=== PATIENT | male | born 1965 | race Caucasian/White ===

== ENCOUNTER 2018-10-14 06:26 | Emergency (ER) | payer SELFPAY ==
[2018-10-14 07:12] LABS: Hemoglobin 13.1 g/dL (14.0-18.0); Mean Corpuscular HGB CONC 31.6 g/dL (32.0-36.0); Mean Corpuscular Hemoglobin 29.6 pg (27.0-31.0); Mean Corpuscular Volume 93.8 fL (78.0-98.0); Mean Platelet Volume 8.3 fL (7.4-10.4); Platelet Count 168 thou/uL (130-400); RBC Distribution Width 11.4 % (11.5-14.5); Red Blood Cell (RBC) Count 4.42 mill/uL (4.70-6.10)
[2018-10-14 07:16] LABS: ALT (SGPT) 9 U/L (8-55); AST (SGOT) 14 U/L (5-34); Albumin 3.9 g/dL (3.5-5.0); Alkaline Phosphatase 71 U/L (40-150); Anion Gap 8 mmol/L (10-20); BUN (Urea Nitrogen) 15 mg/dL (8.4-25.7); Bilirubin, Total 1.1 mg/dL (0.2-1.2); CK (CPK) 73 U/L (30-200); Calc. Creatinine Clearance 0 mL/min (70-130); Calcium 9.2 mg/dL (7.8-10.44); Carbon Dioxide 28 mmol/L (22-29); Chloride 104 mmol/L (98-107); Estimated GFR-MDRD 57; Globulin 2.7 g/dL (2.4-3.5); Glucose 108 mg/dL (70-105); Potassium 4.3 mmol/L (3.5-5.1); Protein, Total 6.6 g/dL (6.0-8.3); Sodium 136 mmol/L (136-145)
[2018-10-14 07:30] LABS: Lymphocytes 18 % (21-51); MDiff Complete? YES; Monocytes 32 % (0-10); Neutrophil 48 % (42-75); Platelet Morphology Comment Appears Adequate; Reactive Lymphocytes 2 % (0-10); White Blood Cell (WBC) Count 2.2 thou/uL (4.8-10.8)
[2018-10-14 07:48] LABS: Acetaminophen Less than 6.0 mcg/mL (10.0-30.0); Alcohol Less than 10 mg/dL (Less than 10); Lipase 29 U/L (8-78); Salicylate Less than 8.0 mg/dL (15.0-30.0)
--- NOTE | 2018-10-14 08:03 | RAD ---
FRONTAL VIEW CHEST: INDICATION: Trauma, syncope with fall, injury and pain. FINDINGS: Extrinsic artifacts limit detail. There is no evidence of consolidation, effusion, or pneumothorax. The cardiac silhouette is within normal limits of size for portable technique. IMPRESSION: No focal consolidation. POS: ADRIANAK
--- NOTE | 2018-10-14 08:05 | CT ---
HEAD CT: INDICATION: Trauma, syncope with lightheadedness, fall with injury and pain. FINDINGS: There is focal CSF density at the posterior fossa which either relate to natasha cisterna magna or an ar achnoid cyst. Ventricular system is normal in size. No intracranial hemorrhage, mass effect, or mid line shift. Calvarium is intact. Mild mucosal thickening of the paranasal sinuses. IMPRESSION: No acute intracranial abnormalities. POS: [facility]
[2018-10-14 08:51] LABS: HIV (1/2) Antibody/Antigen Non-Reactive (NonReactive); HIV 1/2 INDEX 0.08 S/CO (<1.00)
[2018-10-14 10:13] LABS: Bilirubin Negative (Negative); Blood, Urine Negative (Negative); Glucose, Urine (Dipstick) Negative (Negative); Leukocyte Negative (Negative); Nitrite Negative (Negative); Protein, Urine (Dipstick) Negative (Neg-Trace); Specific Gravity, Urine 1.015 (1.005-1.030); Urobilinogen 0.2 mg/dL (0.2-1.0)
[2018-10-14 10:14] LABS: Clarity Clear (Clear)
[2018-10-14] MEDS ORDERED: Acetaminophen 500 MG TAB ONE (10:20)
[2018-10-14 10:24] LABS: Amphetamine Not Detected (NotDetected); Barbiturates Screen Not Detected (NotDetected); Benzodiazepine Screen Not Detected (NotDetected); Cocaine Metabolite Screen Not Detected (NotDetected); Medtox Reader # READER 1; Methadone Not Detected (NotDetected); Methamphetamine Not Detected (NotDetected); Opiate Screen Not Detected (NotDetected); Oxycodone Screen Not Detected (NotDetected); Phencyclidine (PCP) Not Detected (NotDetected); THC/Cannabinoid Screen Not Detected (NotDetected); Tricyclic Screen Not Detected (NotDetected)
[2018-10-14 10:25] LABS: Medtox Control Line Valid? VALID (VALID)
== END 2018-10-14 10:30 | disposition home or self-care (01) ==
LOC: ERS 06:26
DX: E86.0 Dehydration (principal); R55 Syncope and collapse; R79.89 Other specified abnormal findings of blood chemistry
CPT/HCPCS: 36415; 51701; 70450; 71045; 80053; 80306; 80307; 81003; 82550; 83690; 84146; 84443; 84484; 85025; 85379; 87389; 93005; 96360